=== PATIENT | male | born 1960 | race Caucasian/White ===

== ENCOUNTER 2020-06-23 05:16 | Inpatient (IN) | payer BC ==
[~2020-06-23] VITALS: Ht 182.9 cm; Wt 105.2 kg
[~2020-06-23 05:16] MED LIST: AMPH25CA PO; ASPI-1497 PO; ATOR10TA69 PO; DESV25TA2 PO; EMPA25TA PO; FAMO-135 PO; INSU100I13 SQ; INSU300I3 SQ; LIRA0.6P2 SQ; LISI-186 PO; METO25TA6 PO; OMEP20CA14 PO; TAMS-11 PO
[2020-06-23] MEDS ORDERED: SODIUM CHLORIDE 0.9% 1,000 ML IV SCH (06:35)
[2020-06-23] MEDS ORDERED: LIDOCAINE HCL 1% 20ML VIAL (Pyxis) INJ ONE (06:55)
[2020-06-23] MEDS ORDERED: SKIN ADHESIVE 0.7 GM EA TOP ONE (06:56)
[2020-06-23] MEDS ORDERED: GENTAMICIN SULF 40MG/ML 2ML VIAL ONE (06:56)
[2020-06-23] MEDS ORDERED: BUPIVACAINE HCL/PF 0.5% (5MG/ML) 10ML ONE (06:56)
[2020-06-23] MEDS ORDERED: PROPOFOL 200MG/20ML VIAL IV ONE (07:33)
[2020-06-23] MEDS ORDERED: NEOSTIGMINE METHYLSULFATE 1MG/ML 10 ML VIAL ONE (07:33)
[2020-06-23] MEDS ORDERED: FENTANYL CITRATE/PF 50MCG/ML 2ML VIAL ONE ×3 (07:33→12:22)
[2020-06-23] MEDS ORDERED: CEFAZOLIN SODIUM 1000MG/VIAL ONE (07:34)
[2020-06-23] MEDS ORDERED: GLYCOPYRROLATE 0.2 MG/ML 2ML VIAL ONE (07:34)
[2020-06-23] MEDS ORDERED: MIDAZOLAM HCL 2 MG/2 ML VIAL ONE (07:34)
[2020-06-23] MEDS ORDERED: LIDOCAINE HCL/PF 1% 10 MG/ML 5ML VIAL ONE (07:35)
[2020-06-23] MEDS ORDERED: ONDANSETRON HCL 4MG/2ML INJ ONE (07:35)
[2020-06-23] MEDS ORDERED: METOCLOPRAMIDE HCL 10MG/2ML VIAL ONE (07:35)
[2020-06-23] MEDS ORDERED: EPHEDRINE SULFATE 50MG/ML VIAL ONE (07:35)
[2020-06-23] MEDS ORDERED: PHENYLEPHRINE HCL 10 MG/ML 1ML (IV VIAL) IV ONE (07:35)
[2020-06-23] MEDS ORDERED: ROCURONIUM BROMIDE 10MG/ML VIAL 5ML IV ONE ×4 (07:39→13:20)
[2020-06-23] MEDS ORDERED: SUCCINYLCHOLINE CHLORIDE 200MG/10ML IV ONE (08:29)
[2020-06-23] MEDS ORDERED: POLYMYXIN B SULFATE 500000 UNITS/VIAL ONE (13:29)
[2020-06-23] MEDS ORDERED: SODIUM CHLORIDE 0.9% 1,000 ML IV ONE (14:15)
[2020-06-23] MEDS ORDERED: ONDANSETRON HCL 4MG/2ML INJ IV PRN (14:15)
[2020-06-23] MEDS ORDERED: MORPHINE SULFATE 2 MG/ML CPJ (NOT FOR IM USE) IV PRN (14:15)
[2020-06-23] MEDS ORDERED: MEPERIDINE HCL/PF 25MG/ML CPJ IV PRN (14:15)
[2020-06-23] MEDS ORDERED: HYDROMORPHONE HCL/PF 2MG/ML CPJ IV PRN (14:45)
[2020-06-23] MEDS: HYDROMORPHONE HCL/PF 2MG/ML CPJ IV PRN ×7 (14:57→22:53)
[2020-06-23] MEDS: SODIUM CHLORIDE 0.45% 1,000 ML IV SCH (16:10)
[2020-06-23] MEDS ORDERED: MORPHINE SULFATE 2 MG/ML CPJ (NOT FOR IM USE) IV ONE (17:35)
[2020-06-23] MEDS ORDERED: THROAT LOZENGES-BENZOCAINE/MENTH/CETYLPYRD CL LOZENGES MM PRN (19:45)
[2020-06-23 20:04] LABS: HEMATOCRIT. 40.3 % (42.0-52.0); HEMOGLOBIN. 13.6 g/dL (14.0-18.0); MEAN CORPUSCULAR HEMOGLOBIN 28.2 pg (28.0-32.0); MEAN CORPUSCULAR VOLUME 83.4 fL (80.0-94.0); MEAN PLATELET VOLUME 7.9 fl (7.4-10.4); PLATELET 186 x1000/uL (130-400); RED BLOOD CELL COUNT 4.83 mill/uL (4.7-6.1); RED CELL DISTRIBUTION WIDTH 13.4 % (11.6-14.6)
[2020-06-23 20:12] LABS: CHLORIDE 110 mEq/L (98-107)
[2020-06-23 20:22] LABS: PLATELET ESTIMATE NORMAL
[2020-06-23] MEDS ORDERED: IPRATROPIUM/ALBUTEROL 0.5-3(2.5)MG/3ML NEB HHN PRN (20:45)
[2020-06-23 23:50] VITALS: BP 118/63
[2020-06-24] VITALS: BP 116/65
[2020-06-24] MEDS ORDERED: CEFAZOLIN 1000MG PREMIX 50 ML IV SCH
[2020-06-24] MEDS ORDERED: ACETAMINOPHEN 325MG TABLET PO PRN (01:35)
[2020-06-24] MEDS: HYDROMORPHONE HCL/PF 2MG/ML CPJ IV PRN ×7 (03:29→23:00)
[2020-06-24 04:00] VITALS: BP 118/66
[2020-06-24] MEDS: SODIUM CHLORIDE 0.45% 1,000 ML IV SCH ×3 (05:55→21:06)
[2020-06-24] MEDS ORDERED: CEFAZOLIN SODIUM 1000MG/VIAL IV SCH (06:00)
[2020-06-24] MEDS ORDERED: GABAPENTIN 300MG CAPSULE PO NR (06:51)
[2020-06-24 07:21] LABS: BASOPHILS % 0.2 % (0.0-2.0); EOSINOPHILS % 0.1 % (0.0-5.0); HEMATOCRIT. 38.2 % (42.0-52.0); HEMOGLOBIN. 12.8 g/dL (14.0-18.0); LYMPHOCYTES % 10.6 % (20.0-50.0); MEAN CORPUSCULAR HEMOGLOBIN 27.7 pg (28.0-32.0); MEAN CORPUSCULAR VOLUME 82.6 fL (80.0-94.0); MEAN PLATELET VOLUME 8.1 fl (7.4-10.4); MONOCYTES % 8.3 % (2.0-8.0); NEUTROPHILS % 80.8 % (40.0-76.0); PLATELET 178 x1000/uL (130-400); RED BLOOD CELL COUNT 4.62 mill/uL (4.7-6.1); RED CELL DISTRIBUTION WIDTH 13.8 % (11.6-14.6)
[2020-06-24 07:34] LABS: CHLORIDE 107 mEq/L (98-107)
[2020-06-24 08:00] VITALS: BP 121/57
[2020-06-24] MEDS: HYDROCODONE/ACETAMINOPHEN 10/325MG TABLET PO PRN ×2 (08:54→19:06)
[2020-06-24] MEDS: LISINOPRIL 5MG TABLET PO SCH (11:11)
[2020-06-24] MEDS: METOPROLOL TARTRATE 25MG TABLET PO SCH (11:12)
[2020-06-24 12:00] VITALS: BP 128/73
[2020-06-24] MEDS ORDERED: DEXTROSE 50% WATER 50ML SYRINGE IV PRN (14:30)
[2020-06-24] MEDS: LEVOFLOXACIN 500MG PREMIX 100 ML IV SCH (15:50)
[2020-06-24] MEDS: INSULIN LISPRO 100 UNITS/ML SUBCUT SCH ×2 (17:40→21:00)
[2020-06-24] MEDS: BLOOD SUGAR DIAGNOSTIC STRIP TEST SCH ×2 (18:08→21:14)
[2020-06-24 20:00] VITALS: BP 134/91
[2020-06-24] MEDS ORDERED: METOCLOPRAMIDE HCL 10MG/2ML VIAL IV NR (21:00)
[2020-06-24] MEDS: ONDANSETRON HCL 4MG/2ML INJ IV PRN ×2 (23:18→23:24)
[2020-06-24] MEDS: GABAPENTIN 300MG CAPSULE PO SCH (23:24)
[2020-06-25] VITALS (7 sets, daily range): BP systolic 112–153; BP diastolic 75–91
[2020-06-25] MEDS: METOCLOPRAMIDE HCL 10MG/2ML VIAL IV SCH ×4 (00:45→17:25)
[2020-06-25] MEDS: HYDROMORPHONE HCL/PF 2MG/ML CPJ IV PRN ×5 (03:06→22:34)
[2020-06-25] MEDS: ONDANSETRON HCL 4MG/2ML INJ IV PRN (03:24)
[2020-06-25] MEDS: ACETAMINOPHEN 650MG/20.3ML UDC PO PRN ×2 (05:06→09:00)
[2020-06-25] MEDS: BLOOD SUGAR DIAGNOSTIC STRIP TEST SCH ×4 (06:44→21:34)
[2020-06-25] MEDS: INSULIN LISPRO 100 UNITS/ML SUBCUT SCH ×4 (06:47→21:00)
[2020-06-25 07:11] LABS: BASOPHILS % 0.2 % (0.0-2.0); EOSINOPHILS % 0.3 % (0.0-5.0); LYMPHOCYTES % 8.1 % (20.0-50.0); MEAN CORPUSCULAR HEMOGLOBIN 27.9 pg (28.0-32.0); MEAN CORPUSCULAR VOLUME 83.1 fL (80.0-94.0); MEAN PLATELET VOLUME 8.9 fl (7.4-10.4); MONOCYTES % 8.4 % (2.0-8.0); PLATELET 224 x1000/uL (130-400); RED BLOOD CELL COUNT 5.36 mill/uL (4.7-6.1); RED CELL DISTRIBUTION WIDTH 14.1 % (11.6-14.6)
[2020-06-25 08:07] LABS: HEMATOCRIT. 44.5 % (42.0-52.0); HEMOGLOBIN. 14.9 g/dL (14.0-18.0)
[2020-06-25] MEDS: GABAPENTIN 300MG CAPSULE PO SCH ×3 (09:00→21:34)
[2020-06-25] MEDS: METOPROLOL TARTRATE 25MG TABLET PO SCH ×2 (09:00→21:39)
[2020-06-25] MEDS: LISINOPRIL 5MG TABLET PO SCH (09:11)
[2020-06-25] MEDS: TAMSULOSIN HCL 0.4MG SR CAPSULE PO SCH (09:12)
[2020-06-25] MEDS ORDERED: ENOXAPARIN 40MG/0.4ML SYR SUBCUT SCH (12:15)
[2020-06-25] MEDS: ENOXAPARIN 30MG/0.3ML SYR SUBCUT SCH ×2 (12:50→21:35)
[2020-06-25 15:18] LABS: CLARITY URINE CLEAR (CLEAR); COLOR URINE YELLOW (YELLOW); KETONES URINE NEGATIVE (NEGATIVE); LEUKOCYTE ESTERASE URINE NEGATIVE (NEGATIVE); NITRITE URINE NEGATIVE (NEGATIVE); OCCULT BLOOD URINE 2+ (NEGATIVE); PH URINE 5.5 (4.5-8.0); PROTEIN URINE TRACE (NEGATIVE); SPECIFIC GRAVITY URINE 1.042 (1.005-1.030); UROBILINOGEN URINE 0.2 E.U./dL (0.2-1.0)
[2020-06-25] MEDS: LEVOFLOXACIN 500MG PREMIX 100 ML IV SCH (17:24)
[2020-06-25] MEDS: PIPERACILLIN/TAZOBACTAM 3.375 G in DEXT 5% WATER 100 ML IV SCH (21:33)
[2020-06-25] MEDS: FAMOTIDINE 20MG TABLET PO SCH (21:34)
[2020-06-25] MEDS ORDERED: VANCOMYCIN 2,000 MG in DEXT 5% WATER 500 ML IV SCH (22:00)
[2020-06-25] MEDS: SODIUM CHLORIDE 0.45% 1,000 ML IV SCH (22:33)
[2020-06-26] VITALS: BP 106/80
[2020-06-26] MEDS: METOCLOPRAMIDE HCL 10MG/2ML VIAL IV SCH ×5 (00:30→23:13)
[2020-06-26] MEDS: PIPERACILLIN/TAZOBACTAM 3.375 G in DEXT 5% WATER 100 ML IV SCH ×4 (02:33→19:41)
[2020-06-26] MEDS: HYDROMORPHONE HCL/PF 2MG/ML CPJ IV PRN ×4 (03:43→22:55)
[2020-06-26 04:00] VITALS: BP 100/66
[2020-06-26] MEDS: GABAPENTIN 300MG CAPSULE PO SCH ×3 (05:59→21:00)
[2020-06-26] MEDS: INSULIN LISPRO 100 UNITS/ML SUBCUT SCH ×4 (06:00→21:35)
[2020-06-26] MEDS: BLOOD SUGAR DIAGNOSTIC STRIP TEST SCH ×4 (06:00→21:21)
[2020-06-26 07:11] LABS: BASOPHILS % 0.3 % (0.0-2.0); EOSINOPHILS % 2.3 % (0.0-5.0); HEMATOCRIT. 39.5 % (42.0-52.0); HEMOGLOBIN. 13.6 g/dL (14.0-18.0); LYMPHOCYTES % 15.5 % (20.0-50.0); MEAN CORPUSCULAR HEMOGLOBIN 28.4 pg (28.0-32.0); MEAN CORPUSCULAR VOLUME 82.1 fL (80.0-94.0); MEAN PLATELET VOLUME 8.4 fl (7.4-10.4); MONOCYTES % 8.6 % (2.0-8.0); NEUTROPHILS % 73.3 % (40.0-76.0); PLATELET 204 x1000/uL (130-400); RED BLOOD CELL COUNT 4.81 mill/uL (4.7-6.1); RED CELL DISTRIBUTION WIDTH 13.8 % (11.6-14.6)
[2020-06-26 07:21] LABS: CHLORIDE 105 mEq/L (98-107)
[2020-06-26 08:00] VITALS: BP 109/65
[2020-06-26] MEDS: METOPROLOL TARTRATE 25MG TABLET PO SCH ×2 (09:00→21:00)
[2020-06-26] MEDS: LISINOPRIL 5MG TABLET PO SCH (09:00)
[2020-06-26] MEDS: TAMSULOSIN HCL 0.4MG SR CAPSULE PO SCH ×2 (09:00→21:00)
[2020-06-26] MEDS: ACETAMINOPHEN 650MG/20.3ML UDC PO PRN (09:34)
[2020-06-26] MEDS: ASPIRIN 81MG TABLET PO SCH (09:35)
[2020-06-26] MEDS: ENOXAPARIN 30MG/0.3ML SYR SUBCUT SCH ×2 (09:35→21:01)
[2020-06-26] MEDS: VANCOMYCIN 1 G PREMIX 200 ML IV SCH ×2 (10:27→21:14)
[2020-06-26 12:00] VITALS: BP 114/63
[2020-06-26 16:00] VITALS: BP 121/70
[2020-06-26] MEDS: SODIUM CHLORIDE 0.45% 1,000 ML IV SCH ×2 (16:37→21:01)
[2020-06-26 20:00] VITALS: BP 111/70
[2020-06-26] MEDS: FAMOTIDINE 20MG TABLET PO SCH (21:00)
[2020-06-26] MEDS: LORAZEPAM 2MG/ML CPJ IV PRN (21:01)
[2020-06-26] MEDS: ONDANSETRON HCL 4MG/2ML INJ IV PRN (21:56)
[2020-06-27] VITALS: BP 100/90
[2020-06-27] MEDS: HYDROMORPHONE HCL/PF 2MG/ML CPJ IV PRN ×4 (01:11→22:09)
[2020-06-27] MEDS: PIPERACILLIN/TAZOBACTAM 3.375 G in DEXT 5% WATER 100 ML IV SCH ×4 (02:00→20:12)
[2020-06-27 04:00] VITALS: BP 107/59
[2020-06-27] MEDS: LORAZEPAM 2MG/ML CPJ IV PRN ×2 (04:33→17:05)
[2020-06-27] MEDS: GABAPENTIN 300MG CAPSULE PO SCH ×3 (05:42→20:44)
[2020-06-27] MEDS: METOCLOPRAMIDE HCL 10MG/2ML VIAL IV SCH ×3 (05:43→17:04)
[2020-06-27] MEDS: SODIUM CHLORIDE 0.45% 1,000 ML IV SCH ×2 (05:57→18:28)
[2020-06-27] MEDS: BLOOD SUGAR DIAGNOSTIC STRIP TEST SCH ×4 (06:35→20:13)
[2020-06-27] MEDS: INSULIN LISPRO 100 UNITS/ML SUBCUT SCH ×4 (06:35→20:46)
[2020-06-27 07:22] LABS: CHLORIDE 107 mEq/L (98-107)
[2020-06-27 08:00] VITALS: BP 104/67
[2020-06-27] MEDS: ENOXAPARIN 30MG/0.3ML SYR SUBCUT SCH ×2 (08:24→20:14)
[2020-06-27] MEDS: ASPIRIN 81MG TABLET PO SCH (08:25)
[2020-06-27] MEDS: METOPROLOL TARTRATE 25MG TABLET PO SCH ×2 (09:00→20:12)
[2020-06-27] MEDS: LISINOPRIL 5MG TABLET PO SCH (09:00)
[2020-06-27] MEDS: VANCOMYCIN 1 G PREMIX 200 ML IV SCH (09:38)
[2020-06-27 12:00] VITALS: BP 116/69
[2020-06-27 16:00] VITALS: BP 118/72
[2020-06-27 20:00] VITALS: BP 122/67
[2020-06-27] MEDS: FAMOTIDINE 20MG TABLET PO SCH (20:13)
[2020-06-27] MEDS: ONDANSETRON HCL 4MG/2ML INJ IV PRN (22:08)
[2020-06-28] VITALS: BP 117/64
[2020-06-28] MEDS: METOCLOPRAMIDE HCL 10MG/2ML VIAL IV SCH ×3 (00:04→12:00)
[2020-06-28] MEDS: LORAZEPAM 2MG/ML CPJ IV PRN (00:04)
[2020-06-28] MEDS: SODIUM CHLORIDE 0.45% 1,000 ML IV SCH (00:05)
[2020-06-28] MEDS: PIPERACILLIN/TAZOBACTAM 3.375 G in DEXT 5% WATER 100 ML IV SCH ×2 (02:58→09:17)
[2020-06-28] MEDS: HYDROMORPHONE HCL/PF 2MG/ML CPJ IV PRN (03:19)
[2020-06-28 04:00] VITALS: BP 109/72
[2020-06-28] MEDS: ACETAMINOPHEN 650MG/20.3ML UDC PO PRN (04:43)
[2020-06-28] MEDS: GABAPENTIN 300MG CAPSULE PO SCH (05:04)
[2020-06-28] MEDS ORDERED: VANCOMYCIN 1250MG in DEXTROSE 5% WATER 250ML IV SCH (06:00)
[2020-06-28] MEDS: BLOOD SUGAR DIAGNOSTIC STRIP TEST SCH ×2 (06:40→12:10)
[2020-06-28] MEDS: INSULIN LISPRO 100 UNITS/ML SUBCUT SCH ×2 (06:40→12:40)
[2020-06-28 06:45] LABS: CHLORIDE 108 mEq/L (98-107)
[2020-06-28 06:46] LABS: BASOPHILS % 0.8 % (0.0-2.0); EOSINOPHILS % 4.1 % (0.0-5.0); HEMATOCRIT. 31.5 % (42.0-52.0); HEMOGLOBIN. 10.8 g/dL (14.0-18.0); LYMPHOCYTES % 23.3 % (20.0-50.0); MEAN CORPUSCULAR HEMOGLOBIN 28.1 pg (28.0-32.0); MEAN PLATELET VOLUME 8.5 fl (7.4-10.4); MONOCYTES % 9.4 % (2.0-8.0); NEUTROPHILS % 62.4 % (40.0-76.0); PLATELET 198 x1000/uL (130-400); RED BLOOD CELL COUNT 3.85 mill/uL (4.7-6.1); RED CELL DISTRIBUTION WIDTH 13.6 % (11.6-14.6)
[2020-06-28 08:00] VITALS: BP 120/68
[2020-06-28] MEDS ORDERED: BISACODYL 5MG TABLET PO PRN (08:15)
[2020-06-28] MEDS ORDERED: POTASSIUM CHLORIDE 20MEQ TABLET SR PO NR (09:00)
[2020-06-28] MEDS: TAMSULOSIN HCL 0.4MG SR CAPSULE PO SCH ×2 (09:00→09:17)
[2020-06-28] MEDS ORDERED: DOCUSATE SODIUM 100MG CAPSULE PO NR (09:00)
[2020-06-28] MEDS: ASPIRIN 81MG TABLET PO SCH (09:16)
[2020-06-28] MEDS: ENOXAPARIN 30MG/0.3ML SYR SUBCUT SCH (09:17)
[2020-06-28] MEDS: METOPROLOL TARTRATE 25MG TABLET PO SCH (09:18)
[2020-06-28] MEDS: LISINOPRIL 5MG TABLET PO SCH (09:18)
[2020-06-28 10:29] VITALS: BP 120/68
== END 2020-06-28 13:15 | disposition home or self-care (01) | DRG 351 ==
LOC: OR 05:16 → SUPCPDRO 19:11 → 8WST 21:30
PROVIDERS: ADMIT Specialist; ATTEND Specialist
PROC: 0WUF0JZ Supplement Abdominal Wall with Synthetic Substitute, Open Approach (ICD-10-PCS; principal; 2020-06-23)
PROC: 0YUA0JZ Supplement Bilateral Inguinal Region with Synthetic Substitute, Open Approach (ICD-10-PCS; 2020-06-23)
PROC: 8E0W4CZ Robotic Assisted Procedure of Trunk Region, Percutaneous Endoscopic Approach (ICD-10-PCS; 2020-06-23)
DX: K40.20 Bilateral inguinal hernia, without obstruction or gangrene, not specified as recurrent (principal); J98.11 Atelectasis; K43.0 Incisional hernia with obstruction, without gangrene; D17.9 Benign lipomatous neoplasm, unspecified; D72.829 Elevated white blood cell count, unspecified; E11.9 Type 2 diabetes mellitus without complications; K40.30 Unilateral inguinal hernia, with obstruction, without gangrene, not specified as recurrent; I10 Essential (primary) hypertension; R50.82 Postprocedural fever; K66.0 Peritoneal adhesions (postprocedural) (postinfection); Z79.4 Long term (current) use of insulin; Z90.49 Acquired absence of other specified parts of digestive tract; Z79.899 Other long term (current) drug therapy
CPT/HCPCS: 36415; 71045; 78582; 80048; 80053; 80202; 81003; 82962; 83036; 83880; 84145; 84484; 85025; 85379; 87070; 88302; 93005; 93970; 97116; 97162; 97530; A9558; C1781; J0330; J0690; J1170; J1580; J1650; J1815; J1956; J2060; J2250; J2270; J2370; J2405; J2543; J2704; J2710; J2765; J3010; J3370; J3490; J7060; A4315